=== PATIENT | female | born 1935 | race Caucasian/White ===

== ENCOUNTER → 2017-03-26 | Outpatient (CLI) | payer MEDICARE ==
[~2017-03-26] MED LIST: ASPI-496 PO; CRAN1CAP2 PO; DIGO125T6 PO; DIPH1TAB6 PO; FLUT1DIS3 INH; HYDR12.53 PO; LEVO112T2 PO; LEVO125T PO; LEVO25TA2 PO; LOSA25TA2 PO; LOSA25TA5 PO; LOVA10TA PO; METO50TA82 PO; POTA25TA4 PO; magnesium PO
[2017-03-26 13:35] LABS: ASPARTATE AMINO TRANSFERASE 26 U/L (15-37); BLOOD UREA NITROGEN 22 mg/dL (7-18)
[2017-03-27 09:57] LABS: HEPATITIS C VIRUS ANTIBODY Nonreactive (Nonreactive)
== END | disposition home or self-care (01) ==
LOC: CFH 09:09
PROVIDERS: ATTEND Nurse Practitioner Primary Care
DX: J90 Pleural effusion, not elsewhere classified (principal); R53.83 Other fatigue; E03.9 Hypothyroidism, unspecified; E55.9 Vitamin D deficiency, unspecified; R79.9 Abnormal finding of blood chemistry, unspecified; E88.81 Metabolic syndrome and other insulin resistance; I10 Essential (primary) hypertension; Z99.81 Dependence on supplemental oxygen
CPT/HCPCS: 36415; 71020; 80053; 80061; 80074; 81003; 82306; 82607; 82746; 83880; 84425; 84439; 84443; 85025; 86644; 86645; 86663; 86664; 86665; 86747

== ENCOUNTER → 2017-06-15 | Outpatient (CLI) | payer MEDICARE | END | disposition home or self-care (01) | LOC: CFH 10:06 | PROVIDERS: ATTEND Internal Medicine | DX: Z12.31 Encounter for screening mammogram for malignant neoplasm of breast (principal) | CPT/HCPCS: G0202 ==

== ENCOUNTER → 2018-10-28 | Outpatient (CLI) | payer MEDICARE ==
[~2018-10-28] MED LIST changes: -DIGO125T6 PO; +DIGO125T81 PO; +HYDR12.517 PO; -HYDR12.53 PO; +LOSA25TA25 PO; -LOSA25TA5 PO
== END | disposition home or self-care (01) ==
LOC: CFH 08:45
PROVIDERS: ATTEND Internal Medicine
DX: H81.09 Meniere's disease, unspecified ear (principal); E03.9 Hypothyroidism, unspecified; E87.6 Hypokalemia; I10 Essential (primary) hypertension; R01.1 Cardiac murmur, unspecified; I47.1 Supraventricular tachycardia; E11.69 Type 2 diabetes mellitus with other specified complication; R06.00 Dyspnea, unspecified; E78.1 Pure hyperglyceridemia; R74.0 Nonspecific elevation of levels of transaminase and lactic acid dehydrogenase [LDH]; M25.561 Pain in right knee; Z12.31 Encounter for screening mammogram for malignant neoplasm of breast; Z83.2 Family history of diseases of the blood and blood-forming organs and certain disorders involving the immune mechanism
CPT/HCPCS: 70551

== ENCOUNTER → 2020-10-02 | Outpatient (CLI) | payer MEDICARE | END | disposition home or self-care (01) | LOC: CFH 12:58 | PROVIDERS: ATTEND Internal Medicine | DX: Z12.31 Encounter for screening mammogram for malignant neoplasm of breast (principal) | CPT/HCPCS: 77063; 77067 ==

== ENCOUNTER 2021-05-23 10:28 | Outpatient (CLI) | payer MEDICARE | END 2021-05-23 23:59 | disposition home or self-care (01) | LOC: CFH 10:28 | PROVIDERS: ATTEND Internal Medicine | DX: R06.09 Other forms of dyspnea (principal); I51.7 Cardiomegaly; Z98.82 Breast implant status | CPT/HCPCS: 71250 ==